=== PATIENT | male | born 1955 | race Caucasian/White ===

== ENCOUNTER 2020-11-14 02:31 | Emergency (ER) | payer OTHER ==
[~2020-11-14] VITALS: Ht 182.9 cm; Wt 80.4 kg
[2020-11-14 02:34] VITALS: BP 182/118
[2020-11-14] MEDS ORDERED: OXYMETAZOLINE NASAL SPRAY 0.05%,30ML ONE (03:19)
[2020-11-14] MEDS ORDERED: NEOSPORIN OINT. PKT 1 PACKET ONE (03:25)
--- NOTE | 2020-11-14 04:09 | NUR ---
Patient/Caregiver given discharge instructions and they have confirmed that they understand the instructions. Patient ambulatory with steady gait. NAD, all questions answered appropriately, denies additional needs at this time. No personal belongings left in room after discharge.
== END 2020-11-14 04:11 | disposition home or self-care (01) ==
LOC: ED 03:39
DX: R04.0 Epistaxis (principal); R94.31 Abnormal electrocardiogram [ECG] [EKG]; I10 Essential (primary) hypertension
CPT/HCPCS: 30901; 93005; 99284

== ENCOUNTER 2020-11-19 08:26 | Emergency (ER) | payer OTHER ==
[~2020-11-19] VITALS: Ht 182.9 cm; Wt 80.0 kg
[2020-11-19 08:45] VITALS: BP 161/98
--- NOTE | 2020-11-19 09:02 | NUR ---
UNDERCOVER OPERATOR: PT TO ROOM FROM [facility].
--- NOTE | 2020-11-19 09:19 | NUR ---
pt states he had packing placed last wed, as of yesterday states packing has moved up into his sinus cavity. pt tried to readjust the packing, now more painful. rr even non labored. will ctm. tbs.
[2020-11-19] MEDS ORDERED: SILVER NITRATE STICK TP ONE ×2 (09:57→10:00)
== END 2020-11-19 10:44 | disposition home or self-care (01) ==
LOC: ED 10:40
DX: R04.0 Epistaxis (principal)
CPT/HCPCS: 30901; 99284